=== PATIENT | male | born 1975 | race Caucasian/White ===

== ENCOUNTER 2017-05-24 02:23 | Emergency (ER) | payer SELFPAY ==
[~2017-05-24] VITALS: Ht 177.8 cm; Wt 127.3 kg
[2017-05-24 02:25] VITALS: BP 197/121
[2017-05-24] MEDS ORDERED: HYDR25TA PO (02:33)
== END 2017-05-24 03:30 | disposition left against medical advice (07) ==
LOC: EMS 02:25
DX: Z00.8 Encounter for other general examination (principal); F17.210 Nicotine dependence, cigarettes, uncomplicated; F12.90 Cannabis use, unspecified, uncomplicated; I10 Essential (primary) hypertension; Z53.21 Procedure and treatment not carried out due to patient leaving prior to being seen by health care provider